=== PATIENT | male | born 1945 | race Caucasian/White ===

== ENCOUNTER → 2021-08-26 | Outpatient (CLI) | payer MEDICARE, OTHER ==
[~2021-08-26] MED LIST: ASPIRIN EC81 MG PO; ATORVASTATIN CA40 MG PO; BUMETANIDE1 MG PO; BUMEX IV 00.25 MG/ML PO; COLACE 100MG C100 MG PO; COUMADIN5 MG PO; COZAAR100 MG PO; CYANOCOBAL1000 MCG/1 IM; D3-200050 MCG PO; ECOTRIN81 MG PO; ELIQUIS5 MG PO; GLUCOTROL5 MG PO; HYDROCODON-ACE1 EAC6 PO; INSULIN ASPART; INSULIN ASPART SQ; LIDODERM PATCH TD; LIDOPATCH1 EACH TP; LIPITOR80 MG PO; MAXEPA500 MG PO; METOPROLOL SUC100 MG PO; METOPROLOL SUCC50 MG PO; NORVASC5 MG PO; PROAIR DIGIHAL90 MCG IH; VITAMIN D 40400 UNIT PO; ZAROXOLYN/DIULO5 MG PO; [UNRECOGNIZED DRUG - OTHER] SQ
== END ==
LOC: HEART CORB 09:00
DX: I25.10 Atherosclerotic heart disease of native coronary artery without angina pectoris (principal); I35.0 Nonrheumatic aortic (valve) stenosis; R07.2 Precordial pain; R06.02 Shortness of breath; I50.22 Chronic systolic (congestive) heart failure; I13.0 Hypertensive heart and chronic kidney disease with heart failure and stage 1 through stage 4 chronic kidney disease, or unspecified chronic kidney disease; N18.9 Chronic kidney disease, unspecified; Z95.5 Presence of coronary angioplasty implant and graft
CPT/HCPCS: 78452; A9502; J2785

== ENCOUNTER → 2021-09-07 | Outpatient (CLI) | payer OTHER, MEDICARE | LOC: LAB 13:52 | DX: R09.02 Hypoxemia (principal) | CPT/HCPCS: 36600; 82803 ==

== ENCOUNTER → 2021-09-12 | Outpatient (CLI) | payer OTHER, MEDICARE | LOC: SLEEP-COR 09:05 | DX: G47.33 Obstructive sleep apnea (adult) (pediatric) (principal) | CPT/HCPCS: 95811 ==

== ENCOUNTER → 2021-11-16 | Outpatient (CLI) | payer OTHER, MEDICARE | LOC: HEART 5 13:27 | DX: R06.02 Shortness of breath (principal) | CPT/HCPCS: 94060; 94729 ==

== ENCOUNTER → 2021-11-16 | Outpatient (CLI) | payer OTHER, MEDICARE | LOC: LAB 14:53 | DX: I25.10 Atherosclerotic heart disease of native coronary artery without angina pectoris (principal); I12.9 Hypertensive chronic kidney disease with stage 1 through stage 4 chronic kidney disease, or unspecified chronic kidney disease; N18.9 Chronic kidney disease, unspecified; I25.119 Atherosclerotic heart disease of native coronary artery with unspecified angina pectoris; Z00.00 Encounter for general adult medical examination without abnormal findings; Z86.79 Personal history of other diseases of the circulatory system; Z86.16 Personal history of COVID-19; E78.5 Hyperlipidemia, unspecified | CPT/HCPCS: 36600; 82803 ==